=== PATIENT | female | born 1990 | race Caucasian/White ===

== ENCOUNTER 2021-06-08 12:50 | Emergency (ER) | payer SELFPAY ==
[2021-06-08 13:06] VITALS: BP 129/80; PULSE 69; RESP 20; TEMP 37.2; O2SAT 99
--- NOTE | 2021-06-08 13:49 | ED.EYEPROB ---
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 Her eye was flushed but she has since had blurriness with vision. Related Data Allergies Allergy/AdvReac Type Severity Reaction Status Date / Time No Known Allergies Allergy Verified 06/08/21 13:54 Review of Systems Review of Systems: CONSTITUTIONAL: Denies fever, chills, sweats. EYES: Denies visual changes, right redness, right discharge. ENT: Denies rhinorrhea, congestion, sore throat, otalgia. CARDIOVASCULAR: Denies chest pain, palpitations, edema. RESPIRATORY: Denies dyspnea, wheezing, cough GASTROINTESTINAL: Denies abdominal pain, nausea, vomiting, diarrhea. GENITOURINARY: Denies dysuria, hematuria, abnormal discharge SKIN: Denies rash or itching. NEUROLOGIC: Denies numbness, or focal weakness. PSYCHIATRIC: Denies anxiety or depression. PMFSH Past Medical History Medical History No acute medical problems Family History Family History Mother Hypertension Social History Social History (Updated 06/08/21 @ 13:51 by Maylin Caldera CNP) Smoking status: Never smoker Alcohol intake: current Comments At time of signature, I agree with nursing past medical, surgical, social and family history. There is no relevant family history pertinent to the presenting complaint. Exam Narrative: GENERAL: This is a well-nourished, well-developed patient, in mild distress. HEAD: normocephalic, atraumatic. EYES: PERRL. Sclera clear/white, right injected with swelling of eyelid. Vision is grossly intact. EARS: External ears normal, a. Hearing grossly intact. NOSE: External nose normal without nasal discharge, nares without redness, no rhinorrhea. THROAT: Mucous membranes moist, NECK: Neck supple, non-tender CARDIOVASCULAR: Regular rate and rhythm without murmurs, gallops, or rubs. RESPIRATORY: Clear to auscultation. Breath sounds equal bilaterally. No wheezes, rales, or rhonchi. GASTROINTESTINAL: Abdomen soft, non-tender, SKIN: warm, intact with no suspicious lesions or rash, good texture and turgor. NEURO: awake, alert, and oriented to person, place and time. There were no obvious focal neurologic abnormalities. Steady gait EXTREMITIES: Normal range of motion. BACK: Nontender without deformity Course Course Emergency Course: Patient here due to right eye swelling upper lid and redness, states her vision is somewhat blurred Her eye exam is 20/40 both eyes without glasses Did exam?tetracaine for numbing and fluorescein stain observed I with Berkowitz lamp and there is a small corneal abrasion in the inner canthus of the right eye Started on tobramycin eye ointment Vital Signs Vital signs: Vital Signs Temperature 98.9 F 06/08/21 13:06 Pulse Rate 69 06/08/21 13:06 Respiratory Rate 20 06/08/21 13:06 Blood Pressure 129/80 06/08/21 13:06 Pulse Oximetry 99 06/08/21 13:06 Temperature 98.9 F 06/08/21 13:06 Pulse Rate 69 06/08/21 13:06 Respiratory Rate 20 06/08/21 13:06 Blood Pressure 129/80 06/08/21 13:06 Pulse Oximetry 99 06/08/21 13:06 MDM - Eye Problem Differential Diagnosis Differential diagnosis: Likely corneal abrasion, conjunctivitis, subconjunctival hemorrhage, corneal ulcer and other Critical Care Time Critical Care Time Critical Care Time: No Discharge Plan Discharge Clinical Impression: Corneal abrasion Qualifiers: Encounter type: initial encounter Lateral
== END 2021-06-08 14:10 | disposition home or self-care (01) ==
PROVIDERS: Emergency Provider Nurse Practitioner
DX: S05.01XA Injury of conjunctiva and corneal abrasion without foreign body, right eye, initial encounter (principal); X58.XXXA Exposure to other specified factors, initial encounter
CPT/HCPCS: 99213; A9270; G0463

== ENCOUNTER 2022-02-28 10:53 | Emergency (ER) | payer BC, SELFPAY ==
[2022-02-28 10:56] VITALS: BP 114/73; PULSE 89; RESP 18; TEMP 36.6; O2SAT 100
--- NOTE | 2022-02-28 12:02 | ED.DENTAL ---
HPI - Dental/Oral General Chief complaint: Dental/Oral Stated complaint: abscess tooth Time Seen by Provider: 02/28/22 11:34 History of Present Illness HPI Narrative: Patient is a 31-year-old female who presents ER with concerns for dental abscess. Diagnosed with dental abscess 5 days ago. She has been on antibiotics and taking them at regular intervals. Reports swelling decreased today but she notes discomfort under her jaw along the left side of her neck. Her friends told her that she should be evaluated make sure she is not getting sicker. No fevers or chills or sweats. No redness. She has had no drainage within her mouth. No difficulty with breathing or swallowing. Related Data Allergies Allergy/AdvReac Type Severity Reaction Status Date / Time No Known Allergies Allergy Verified 06/08/21 13:54 Review of Systems Constitutional: Constitutional: Denies chills, Denies fever(s) and Denies weakness ENT: Denies nasal congestion and Denies sore throat Comments: Dental pain Respiratory: Respiratory: Denies cough, Denies dyspnea and Denies wheezing Gastrointestinal: Gastrointestinal: Denies abdominal pain, Denies nausea and Denies vomiting PMFSH Past Medical History Medical History No acute medical problems Family History Family History Mother Hypertension Social History Social History (Updated 06/08/21 @ 13:51 by Maylin Caldera CNP) Smoking status: Never smoker Alcohol intake: current Exam Narrative: GENERAL: Well-appearing, well-nourished, and in no acute distress. HEAD: Normocephalic, atraumatic. ENT: Mucous membranes moist. No discernible dental abscess intraorally. Neck: Mild submandibular lymphadenopathy left side as well as left anterior cervical chain lymphadenopathy. Full range of motion. CHEST: Clear to auscultation. No respiratory distress. EXTREMITIES: Normal range of motion. No edema. NEURO: Alert and oriented x3. PSYCH: Normal mood and affect. Course Course Emergency Course: Lymphadenopathy causing discomfort. No trismus, airway intact, tolerating oral secretions. Vital Signs Vital signs: Vital Signs Temperature 98 F 02/28/22 10:56 Pulse Rate 89 02/28/22 10:56 Respiratory Rate 18 02/28/22 10:56 Blood Pressure 114/73 02/28/22 10:56 Pulse Oximetry 100 02/28/22 10:56 Temperature 98 F 02/28/22 10:56 Pulse Rate 89 02/28/22 10:56 Respiratory Rate 18 02/28/22 10:56 Blood Pressure 114/73 02/28/22 10:56 Pulse Oximetry 100 02/28/22 10:56 Discharge Plan Discharge Clinical Impression: Dental abscess Patient Disposition: Home, Self-Care Condition: Stable Instructions: Dental Abscess (ED) Additional Instructions: Seen to have an abscess that is resolving. Follow-up with your dentist as previously scheduled. Return to the ER if you cannot breathe, you cannot swallow, you have additional concerns. Prescriptions: No Action tobramycin 0.3 % drops 2 drp RIGHT EYE Q4H Qty: 5 RF: 0 Follow-up/Referrals: PHYSICIAN,CONSTRUCTION ADMINISTRATIVE ASSISTANT [Primary Care Provider] -
[2022-02-28 12:04] VITALS: BP 117/83; PULSE 64; RESP 20; O2SAT 100
== END 2022-02-28 12:24 | disposition home or self-care (01) ==
PROVIDERS: Emergency Provider Emergency Medicine
DX: K04.7 Periapical abscess without sinus (principal)
CPT/HCPCS: 99281

== ENCOUNTER 2023-04-25 10:40 | Emergency (ER) | payer BC, SELFPAY ==
--- NOTE | 2023-04-25 10:52 | ED.SKABFB ---
HPI - Skin/Abscess/Foreign Bdy General Chief complaint: Skin/Abscess/Foreign Body Stated complaint: Rash History of Present Illness HPI narrative: Patient presents with a 2 week history of poison anahy to both arms and legs. Patient states the itching is (driving her crazy (patient is applying calamine lotion and took 1 Benadryl last night for itching. Patient has not taken anything else [id number] for her symptoms. No shortness of breath no chest pain no concern for infection to the areas. Related Data Allergies Allergy/AdvReac Type Severity Reaction Status Date / Time No Known Allergies Allergy Verified 06/08/21 13:54 Review of Systems Review of Systems: CONSTITUTIONAL: Denies fever, chills, or sweats. EYES: Denies visual changes, redness, or discharge. ENT: Denies rhinorrhea, congestion, sore throat, or otalgia. CARDIOVASCULAR: Denies chest pain, palpitations, or edema. RESPIRATORY: Denies cough or dyspnea. GASTROINTESTINAL: Denies abdominal pain, nausea, vomiting, or diarrhea. GENITOURINARY: Denies dysuria or hematuria. SKIN: Denies rash or itching. MUSCULOSKELETAL: Denies back pain, joint pain, or myalgia. NEUROLOGIC: Denies headache, numbness, or weakness. PSYCHIATRIC: Denies anxiety or depression. [facility] Past Medical History Medical History No acute medical problems Family History Family History Mother Hypertension Social History Social History (Updated 06/08/21 @ 13:51 by Maylin Caldera, GISELA) Smoking status: Never smoker Alcohol intake: current Comments At time of signature, agree with nursing past medical, surgical, social and family history. There is no relevant family history pertinent to the presenting complaint Exam Narrative: GENERAL: Well-appearing, well-nourished, and in no acute distress. HEAD: Normocephalic, atraumatic. EYES: PERRLA and EOMI. ENT: Nares clear, no rhinorrhea or epistaxis. Mucous membranes moist. NECK: Supple. CHEST: Clear to auscultation. No respiratory distress. HEART: Regular rate and rhythm. No murmur heard. Normal peripheral pulses. ABDOMEN: Soft, nontender, nondistended, normal active bowel sounds. EXTREMITIES: Normal range of motion. No edema. SKIN: Warm, dry, no rash. RASH CONSISTENT WITH RHUS DERMATITIS. LINEAR MARINELLI WITH WET LIKE APPEARS ON NEW AREAS. DIFFERENT STAGES PRESENT. REDNESS TO LESIONS. NO SIGNS OF INFECTION OR CELLULITIS/ABSCESS. NO VESICLES. NO ULCERATIONS. NO RAISED URTICARIAL LESIONS. NO LESIONS ALONG THE WAISTBAND OR IN WEB SPACES. NO BURROWS. NO PETECHIAE. ? NEURO: No focal deficits. Alert and oriented x3. Danis Coma Scale Eye Opening: Spontaneous 4 Creighton Coma Scale Motor: Obeys Commands 6 Danis Coma Scale Verbal: Oriented 5 Danis Coma Scale Total 15 Course Course Level of Care: Express Care Visit Discharge Plan Discharge Clinical Impression: Poison anahy Patient Disposition: Home, Self-Care Condition: Stable Instructions: Poison Anahy (ED) Additional Instructions: poisonivy 1. Please be aware that the oil from the plant is what causes the skin irritation, it will continue to spread as long as the oils are present. Please wash all clothing, bedding, equipment that came into contact with the plant to prevent further spreading. Animal fur can also cause spread of oils. 2. You can apply 1% Hydrocortisone cream on the rash, in smaller distributed areas, do no cover body, up to 3 times a day. This is available over the counter. 3. Cold soaks: cold compresses and soaks can be soothing to the skin. Ice cubes to the area help prevent oils from spreading. 4. Benadryl 25-50mg as needed every 6 hours over the counter to help with itching 5. Prevent scratching so that accidental skin infections do no occur. 6. If rash begins to look infected (red, warmth, fevers, increased drainage) please see PCP
[2023-04-25 10:53] VITALS: BP 114/76; PULSE 78; RESP 16; TEMP 36.5; O2SAT 97
== END 2023-04-25 11:03 | disposition home or self-care (01) ==
PROVIDERS: Emergency Provider Nurse Practitioner Family
DX: L23.7 Allergic contact dermatitis due to plants, except food (principal)
CPT/HCPCS: 99213; G0463

== ENCOUNTER 2023-07-05 16:02 | Emergency (ER) | payer BC, SELFPAY ==
--- NOTE | 2023-07-05 16:06 | ED.UPPEXIN ---
HPI - Extremity Injury (Upper) General Chief Complaint: Extremity Injury, Upper Stated Complaint: Middle finger/right hand Source: patient and RN notes reviewed Mode of arrival: ambulatory Limitations: no limitations History of Present Illness HPI narrative: patient is a 33-year-old female who presents to the [facility] with complaints of laceration to her right middle finger. Patient states that around 3:05 p.m. today, she was reaching in her bag and was cut by loose razor blade. 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 Patient states that a coworker immediately dressed the finger and told her she needed to get it sutured. There is no active bleeding at this time. Patient is unsure of last tetanus. Related Data Allergies Allergy/AdvReac Type Severity Reaction Status Date / Time No Known Allergies Allergy Verified 06/08/21 13:54 Review of Systems Review of Systems: CONSTITUTIONAL: Denies fever, chills, or sweats. EYES: Denies visual changes, redness, or discharge. ENT: Denies otalgia and sore throat CARDIOVASCULAR: Denies chest pain, palpitations, or edema. RESPIRATORY: Denies cough or dyspnea. GASTROINTESTINAL: Denies abdominal pain, nausea, vomiting, or diarrhea. GENITOURINARY: Denies dysuria or hematuria. SKIN: Denies rash or itching. 1 cm laceration to right middle finger. MUSCULOSKELETAL: Denies back pain, joint pain, or myalgia. NEUROLOGIC: Denies headache, numbness, or weakness. Pertinent positives per HPI. PMFSH Past Medical History Medical History No acute medical problems Family History Family History Mother Hypertension Social History Social History Smoking status: Never smoker Alcohol intake: current Comments At the time of my signature, I reviewed and agree with the nursing past medical, surgical, social, and family history. There is no relevant family history pertinent to the patient complaint. Exam Narrative: GENERAL: This is a well-nourished, well-developed patient, in no apparent distress. HEAD: normocephalic, atraumatic. EYES: PERRL. Sclera clear/white. Vision is grossly intact. EARS: External ears normal, auditory canals clear and without drainage, TMs normal without perforation. Hearing grossly intact. NOSE: External nose normal with no obvious nasal discharge, nares without redness, no rhinorrhea. THROAT: Mucous membranes moist, posterior pharynx clear. NECK: Neck supple, non-tender without lymphadenopathy, masses or thyromegaly. CARDIOVASCULAR: Regular rate and rhythm without murmurs, gallops, or rubs. RESPIRATORY: Clear to auscultation. Breath sounds equal bilaterally. No wheezes, rales, or rhonchi. GASTROINTESTINAL: Abdomen soft, non-tender, nondistended. Bowel sounds are active. No hepato-splenomegaly, or palpable masses. No guarding. SKIN: warm, intact with no suspicious lesions or rash, good texture and turgor. 1 cm laceration to distal phalanx of right middle finger with no active bleeding. She has full range of motion of the finger. She is neurovascularly intact distal to the injury. NEURO: awake, alert, and oriented to person, place and time. There were no obvious focal neurologic abnormalities. Course Course Level of Care: Express Care Visit Vital Signs Vital signs: Vital Signs Temperature 98.1 F 07/05/23 16:12 Pulse Rate 71 07/05/23 16:12 Respiratory Rate 16 07/05/23 16:12 Blood Pressure 114/73 07/05/23 16:12 Pulse Oximetry 100 07/05/23 16:12 Oxygen Delivery Room Air 07/05/23 16:12 Temperature 98.1 F 07/05/23 16:12 Pulse Rate 71 07/05/23 16:12 Respiratory Rate 16 07/05/23 16:12 Blood Pressure 114/73 07/05/23 16:12 Pulse Oximetry 100 07/05/23 16:12 Ox
[2023-07-05 16:12] VITALS: BP 114/73; PULSE 71; RESP 16; TEMP 36.7; O2SAT 100
[2023-07-05] MEDS: TETANUS,DIPHTHERIA,AC PERTUSSIS ADULT (0.5 ML) BOOSTRIX IM (16:27)
== END 2023-07-05 16:38 | disposition home or self-care (01) ==
PROVIDERS: Emergency Provider Nurse Practitioner
DX: S61.212A Laceration without foreign body of right middle finger without damage to nail, initial encounter (principal); W26.8XXA Contact with other sharp object(s), not elsewhere classified, initial encounter; Z23 Encounter for immunization
CPT/HCPCS: 12001; 90471; 90715; 99212; G0463